=== PATIENT | male | born 1965 | race Caucasian/White ===

== ENCOUNTER 2019-07-14 06:24 | Emergency (ER) | payer SELFPAY ==
[~2019-07-14] VITALS: Ht 190.5 cm; Wt 109.1 kg
[2019-07-14 07:01] VITALS: BP 133/76
== END 2019-07-14 07:10 | disposition home or self-care (01) ==
LOC: EMS 06:24
DX: L02.416 Cutaneous abscess of left lower limb (principal); F17.290 Nicotine dependence, other tobacco product, uncomplicated
CPT/HCPCS: 99406